=== PATIENT | female | born 1935 | race Caucasian/White ===

== ENCOUNTER 2016-11-01 15:50 | Inpatient (IN) | payer OTHER, MEDICAID ==
[~2016-11-01] VITALS: Ht 147.3 cm; Wt 60.4 kg
[2016-11-01 17:46] LABS: BASOPHIL % 0.4 % (0-2); PLATELET COUNT 229 x10^3mcL (130-400); RED CELL DISTRIBUTION WIDTH 13.6 % (11.5-14.5)
[2016-11-01] MEDS ORDERED: NEU300 PO (17:51)
[2016-11-01] MEDS ORDERED: ARICEPT10 MG PO (17:52)
[2016-11-01] MEDS ORDERED: METFORMIN HCL500 MG PO (17:52)
[2016-11-01] MEDS ORDERED: CARVEDILOL6.25 M1 PO (17:52)
[2016-11-01] MEDS ORDERED: DITROPAN XL5 MG PO (17:53)
[2016-11-01] MEDS ORDERED: ATORVASTATIN CA10 M1 PO (17:53)
[2016-11-01 18:05] LABS: CALCIUM 9.1 mg/dL (8.5-10.1); CARBON DIOXIDE 26.4 mmol/L (21-32); CHLORIDE SERUM 99 mmol/L (98-107); CREATININE SERUM 0.7 mg/dL (0.6-1.0); GLUCOSE SERUM 116 mg/dL (74-106); POTASSIUM SERUM 4.5 mmol/L (3.5-5.1); SODIUM SERUM 134 mmol/L (136-145)
[2016-11-01 18:09] LABS: ALBUMIN 3.8 g/dL (3.4-5.0); ALKALINE PHOSPHATASE 82 U/L (46-116); ALT/SGPT 25 U/L (14-59); AST/SGOT 24 U/L (15-37); MAGNESIUM 2.1 mg/dL (1.8-2.4); TOTAL PROTEIN, SERUM 7.5 g/dL (6.4-8.2)
[2016-11-01 18:30] LABS: T3 TOTAL 1.26 ng/mL
[2016-11-01 18:32] LABS: FREE T4 1.13 ng/dL (0.76-1.46); FREE THYROXINE INDEX 3.4 ug/dL (1.4-4.5); T4(THYROXINE) 9.7 ug/dL (4.7-13.3)
[2016-11-01 18:49] VITALS: BP 132/75
[2016-11-01 19:15] LABS: CHOLESTEROL/HDL RATIO 3.6; PHOSPHOROUS 4.1 mg/dL (2.5-4.9)
[2016-11-01 20:58] VITALS: BP 113/54
[2016-11-02 02:34] LABS: microscopic required? NO
[2016-11-02 02:39] LABS: urine erythrocyte NEGATIVE (NEGATIVE)
[2016-11-02 06:04] VITALS: BP 157/60
[2016-11-02 07:03] LABS: CALCIUM 8.9 mg/dL (8.5-10.1); CARBON DIOXIDE 26.7 mmol/L (21-32); CHLORIDE SERUM 102 mmol/L (98-107); CREATININE SERUM 0.7 mg/dL (0.6-1.0); GLUCOSE SERUM 106 mg/dL (74-106); MAGNESIUM 2.4 mg/dL (1.8-2.4); PHOSPHOROUS 4.9 mg/dL (2.5-4.9); POTASSIUM SERUM 4.9 mmol/L (3.5-5.1); SODIUM SERUM 136 mmol/L (136-145)
[2016-11-02 09:41] LABS: BASOPHIL % 0.5 % (0-2); PLATELET COUNT 222 x10^3mcL (130-400); RED CELL DISTRIBUTION WIDTH 13.8 % (11.5-14.5)
[2016-11-02 10:11] VITALS: BP 131/43
[2016-11-02 18:47] VITALS: BP 116/57
[2016-11-02 21:06] VITALS: BP 108/52
[2016-11-03 06:02] VITALS: BP 100/49
[2016-11-03 06:19] LABS: CALCIUM 8.3 mg/dL (8.5-10.1); CARBON DIOXIDE 31.5 mmol/L (21-32); CHLORIDE SERUM 104 mmol/L (98-107); CREATININE SERUM 0.6 mg/dL (0.6-1.0); GLUCOSE SERUM 107 mg/dL (74-106); MAGNESIUM 2.1 mg/dL (1.8-2.4); PHOSPHOROUS 3.8 mg/dL (2.5-4.9); SODIUM SERUM 139 mmol/L (136-145)
[2016-11-03 06:45] LABS: BASOPHIL % 0.4 % (0-2); RED CELL DISTRIBUTION WIDTH 14.5 % (11.5-14.5)
[2016-11-03 06:46] LABS: PLATELET COUNT 118 x10^3mcL (130-400)
[2016-11-03 10:33] VITALS: BP 94/57
[2016-11-03 11:43] VITALS: BP 116/54
[2016-11-03 16:58] VITALS: BP 110/71
[2016-11-03 21:00] VITALS: BP 109/47
[2016-11-04 06:03] VITALS: BP 102/40
[2016-11-04 06:19] LABS: BASOPHIL % 0.4 % (0-2); PLATELET COUNT 191 x10^3mcL (130-400); RED CELL DISTRIBUTION WIDTH 13.9 % (11.5-14.5)
[2016-11-04 06:40] LABS: CALCIUM 7.8 mg/dL (8.5-10.1); CARBON DIOXIDE 26.6 mmol/L (21-32); CHLORIDE SERUM 104 mmol/L (98-107); CREATININE SERUM 0.6 mg/dL (0.6-1.0); GLUCOSE SERUM 99 mg/dL (74-106); MAGNESIUM 2.2 mg/dL (1.8-2.4); POTASSIUM SERUM 4.7 mmol/L (3.5-5.1); SODIUM SERUM 138 mmol/L (136-145)
[2016-11-04 09:37] VITALS: BP 110/56
[2016-11-04 18:04] VITALS: BP 109/48
[2016-11-04 21:49] VITALS: BP 99/57
[2016-11-05] MEDS ORDERED: COLACE100 MG PO (05:23)
[2016-11-05] MEDS ORDERED: TOPCARE LAXATIVE5 MG PO (05:24)
[2016-11-05] MEDS ORDERED: APAP/HYDROCODON1 T15 PO (05:24)
[2016-11-05 06:32] VITALS: BP 96/41
[2016-11-05 09:22] VITALS: BP 113/52
[2016-11-05 14:05] VITALS: BP 113/52
== END 2016-11-05 15:55 | disposition home or self-care (01) | DRG 492 ==
LOC: ED 15:50 → MU 17:10 → DU 17:10 → MU 11-02 22:03
PROVIDERS: Emergency Medicine; Neuromusculoskeletal Medicine, Sports Medicine; ADMIT Family Medicine
PROC: 0PSG04Z Reposition Left Humeral Shaft with Internal Fixation Device, Open Approach (ICD-10-PCS; principal; 2016-11-03 12:00)
DX: S42.342A Displaced spiral fracture of shaft of humerus, left arm, initial encounter for closed fracture (principal); N17.0 Acute kidney failure with tubular necrosis; E87.1 Hypo-osmolality and hyponatremia; R73.03 Prediabetes; N63 Unspecified lump in breast; I10 Essential (primary) hypertension; R32 Unspecified urinary incontinence; I45.10 Unspecified right bundle-branch block; E78.5 Hyperlipidemia, unspecified; I25.10 Atherosclerotic heart disease of native coronary artery without angina pectoris; M81.0 Age-related osteoporosis without current pathological fracture; Z68.27 Body mass index [BMI] 27.0-27.9, adult; Z98.61 Coronary angioplasty status; W01.190A Fall on same level from slipping, tripping and stumbling with subsequent striking against furniture, initial encounter; Y92.003 Bedroom of unspecified non-institutional (private) residence as the place of occurrence of the external cause
CPT/HCPCS: 76001; 82962; 83880; 84439; 97110-GP; C1713; J0690; J1170; J1885; J2270; J2405; J2704; J3010; J3490; J7030; Q0092; Q9967

== ENCOUNTER 2019-03-01 16:36 | Emergency (ER) | payer OTHER, MEDICAID ==
[~2019-03-01] VITALS: Ht 144.8 cm; Wt 59.0 kg
[~2019-03-01 16:36] MED LIST: APAP/HYDROCODON1 T15 PO; ARICEPT10 MG PO; ATORVASTATIN CA10 M1 PO; CARVEDILOL6.25 M1 PO; COLACE100 MG PO; DITROPAN XL5 MG PO; METFORMIN HCL500 MG PO; NEU300 PO; TOPCARE LAXATIVE5 MG PO
[2019-03-01 16:48] VITALS: Ht 144.8 cm; Wt 59.0 kg
[2019-03-01 17:56] LABS: UA SPECIFIC GRAVITY <=1.005 (1.005-1.035); microscopic required? YES; urine erythrocyte 3+ (NEGATIVE)
[2019-03-01 18:05] LABS: BASOPHIL % 0.5 % (0-2); PLATELET COUNT 263 x10^3mcL (130-400); RED CELL DISTRIBUTION WIDTH 14.5 % (11.5-14.5)
[2019-03-01 18:34] LABS: CALCIUM 8.8 mg/dL (8.5-10.1); CARBON DIOXIDE 31.3 mmol/L (21-32); CHLORIDE SERUM 101 mmol/L (98-107); CREATININE SERUM 0.6 mg/dL (0.6-1.0); GLUCOSE SERUM 99 mg/dL (74-106); POTASSIUM SERUM 4.6 mmol/L (3.5-5.1); SODIUM SERUM 138 mmol/L (136-145)
[2019-03-01 18:38] LABS: ALBUMIN 3.7 g/dL (3.4-5.0); ALKALINE PHOSPHATASE 92 U/L (46-116); ALT/SGPT 28 U/L (14-59); AST/SGOT 32 U/L (15-37); BILIRUBIN TOTAL 0.4 mg/dL (0.20-1.00); TOTAL PROTEIN, SERUM 7.9 g/dL (6.4-8.2)
[2019-03-01 19:50] VITALS: BP 136/87
== END 2019-03-01 19:50 | disposition home or self-care (01) ==
LOC: ED 16:36
PROVIDERS: Student in an Organized Health Care Education/Training Program
DX: N39.0 Urinary tract infection, site not specified (principal); E11.9 Type 2 diabetes mellitus without complications; Z88.1 Allergy status to other antibiotic agents; Z98.890 Other specified postprocedural states
CPT/HCPCS: J0696; J7030; J7060

== ENCOUNTER 2019-06-15 11:12 | Emergency (ER) | payer OTHER, MEDICAID ==
[~2019-06-15] VITALS: Ht 149.9 cm; Wt 59.9 kg
[2019-06-15 11:29] VITALS: Ht 149.9 cm; Wt 59.9 kg
[2019-06-15 15:00] VITALS: BP 125/77
== END 2019-06-15 15:00 | disposition home or self-care (01) ==
LOC: ED 11:12
DX: S20.211A Contusion of right front wall of thorax, initial encounter (principal); M81.0 Age-related osteoporosis without current pathological fracture; E11.9 Type 2 diabetes mellitus without complications; Z88.6 Allergy status to analgesic agent; W18.30XA Fall on same level, unspecified, initial encounter; Y93.89 Activity, other specified; Y92.89 Other specified places as the place of occurrence of the external cause; Y99.8 Other external cause status

== ENCOUNTER 2019-12-11 19:27 | Emergency (ER) | payer OTHER, MEDICAID ==
[~2019-12-11] VITALS: Ht 154.9 cm; Wt 62.6 kg
[2019-12-11 19:37] VITALS: BP 168/73; Ht 154.9 cm; Wt 62.6 kg
== END 2019-12-11 22:21 | disposition home or self-care (01) ==
LOC: ED 19:27
DX: S41.112A Laceration without foreign body of left upper arm, initial encounter (principal); S20.211A Contusion of right front wall of thorax, initial encounter; E11.9 Type 2 diabetes mellitus without complications; M81.0 Age-related osteoporosis without current pathological fracture; Z88.1 Allergy status to other antibiotic agents; W01.198A Fall on same level from slipping, tripping and stumbling with subsequent striking against other object, initial encounter; Y93.89 Activity, other specified; Y92.098 Other place in other non-institutional residence as the place of occurrence of the external cause; Y99.8 Other external cause status
CPT/HCPCS: 90715; J2001; Q0092

== ENCOUNTER 2019-12-13 10:32 | Emergency (ER) | payer OTHER, MEDICAID ==
[~2019-12-13] VITALS: Ht 142.2 cm; Wt 61.2 kg
[2019-12-13 10:46] VITALS: Ht 142.2 cm; Wt 61.2 kg
[2019-12-13 11:25] VITALS: BP 135/59
== END 2019-12-13 11:47 | disposition home or self-care (01) ==
LOC: ED 10:32
DX: S41.112D Laceration without foreign body of left upper arm, subsequent encounter (principal); E11.9 Type 2 diabetes mellitus without complications; Z98.890 Other specified postprocedural states; X58.XXXD Exposure to other specified factors, subsequent encounter

== ENCOUNTER 2019-12-19 14:20 | Emergency (ER) | payer OTHER, MEDICAID ==
[~2019-12-19] VITALS: Ht 144.8 cm; Wt 61.2 kg
[2019-12-19 14:25] VITALS: Ht 144.8 cm; Wt 61.2 kg
[2019-12-19 15:09] VITALS: BP 137/60
== END 2019-12-19 15:09 | disposition home or self-care (01) ==
LOC: ED 14:20
DX: S41.112D Laceration without foreign body of left upper arm, subsequent encounter (principal); E11.9 Type 2 diabetes mellitus without complications; Z88.6 Allergy status to analgesic agent

== ENCOUNTER 2019-12-24 12:20 | Emergency (ER) | payer OTHER, MEDICAID ==
[~2019-12-24] VITALS: Ht 144.8 cm; Wt 60.8 kg
[2019-12-24 12:32] VITALS: BP 145/64; Ht 144.8 cm; Wt 60.8 kg
== END 2019-12-24 14:41 | disposition home or self-care (01) ==
LOC: ED 12:20
DX: S41.112D Laceration without foreign body of left upper arm, subsequent encounter (principal); X58.XXXD Exposure to other specified factors, subsequent encounter; Z88.6 Allergy status to analgesic agent; E11.9 Type 2 diabetes mellitus without complications; M81.0 Age-related osteoporosis without current pathological fracture